=== PATIENT | male | born 1960 | race Caucasian/White ===

== ENCOUNTER 2020-10-20 09:53 | Emergency (ER) | payer OTHER ==
[2020-10-20 09:59] VITALS: BMI 37.1
[2020-10-20] MEDS ORDERED: ASPIRIN 81 MG CHEWABLE TABLETS PO ONE (10:51)
[2020-10-20] MEDS ORDERED: ASPIRIN 325 MG ENTERIC COATED TABLET (FP) ONE (10:53)
[2020-10-20 11:23] LABS: BASO % 0.4 % (0-2.0); EOS % 0.2 % (0-4.5); HEMATOCRIT 44.6 % (35.4-49); HEMOGLOBIN 15.6 GM/dL (11.7-16.9); LYMPH % 13.8 % (8-40); MCH 31.4 pg (25.7-33.7); MEAN CELL VOLUME 89.6 fl (80-96); MEAN PLT VOLUME 8.7 fl (7.5-11.1); MONO % 5.5 % (3.8-10.2); NEUT % 80.1 % (42.8-82.8); PLATELET COUNT 178 K/MM3 (134-434); RBC 4.98 M/mm3 (4.00-5.60); RDW 13.4 % (11.9-15.9); WHITE BLOOD COUNT 7.9 K/mm3 (4.0-10.0)
[2020-10-20 11:32] LABS: PROTHROMBIN TIME (PATIENT) 12.3 SEC (9.7-13.0)
[2020-10-20] MEDS ORDERED: ATORVASTATIN CA 80 MG TABLET (FP) PO ONE (11:32)
[2020-10-20 11:35] LABS: ACTIVATED PTT 28.4 SECONDS (25.2-36.5)
[2020-10-20 11:54] LABS: CHLORIDE 106 mmol/L (98-107); POTASSIUM 4.7 mmol/L (3.5-5.1); SODIUM 138 mmol/L (136-145)
[2020-10-20 11:57] LABS: ALBUMIN 3.6 g/dl (3.4-5.0); BLOOD UREA NITROGEN 10.8 mg/dL (7-18); CALCIUM 9.4 mg/dL (8.5-10.1)
[2020-10-20 11:58] LABS: ANION GAP 7 MMOL/L (8-16); CO2 25 mmol/L (21-32); GLUCOSE,RANDOM 178 mg/dL (74-106)
[2020-10-20 12:00] LABS: SGOT/AST 53 U/L (15-37); SGPT/ALT 40 U/L (13-61)
[2020-10-20 12:01] LABS: CREATININE 0.8 mg/dL (0.55-1.3)
[2020-10-20 12:02] LABS: BILIRUBIN,TOTAL 0.7 mg/dL (0.2-1); CHOLESTEROL 161 mg/dL (50-200); TOT PROT 6.8 g/dl (6.4-8.2)
[2020-10-20 12:03] LABS: ALK PHOS 57 U/L (45-117); LDL CHOLESTEROL (ONLY SJRH) 83 mg/dL (5-100); TRIGLYCERIDES 98 mg/dL (0-150)
[2020-10-20 12:05] LABS: HDL CHOLESTEROL 63 mg/dL (40-60)
[2020-10-20 12:37] VITALS: TEMP 98.5
[2020-10-20 12:55] VITALS: BP 150/96; PULSE 94
[2020-10-20] MEDS ORDERED: metFORMIN HCL 500 MG TABLET (FP) PO SCH (16:30)
[2020-10-20] MEDS ORDERED: ATORVASTATIN CA 20 MG TABLET (FP) PO SCH (22:00)
[2020-10-21] MEDS ORDERED: LISINOPRIL 5 MG TABLET PO SCH (10:00)
[2020-10-21] MEDS ORDERED: ASPIRIN COATED 81 MG TABLET.EC PO SCH (10:00)
== END 2020-10-20 12:25 | disposition short-term general hospital (02) ==
LOC: SUPCPDRO 09:53 → JER 09:53 → JERBED 10:42 → UNDOADMIN 10:42
DX: R53.1 Weakness (principal); I69.322 Dysarthria following cerebral infarction; I65.01 Occlusion and stenosis of right vertebral artery; R29.810 Facial weakness
CPT/HCPCS: 36415; 70450-TC; 70496-TC; 70498-TC; 71260-TC; 80053; 80061; 82550; 82553; 82962; 83721; 84484; 85025; 85610; 85730; 86850; 86900; 86901; 87804; 93005; 93010; 99285-25; C9803; Q9967; U0003